=== PATIENT | female | born 1955 | race Caucasian/White ===

== ENCOUNTER → 2018-01-20 | Outpatient (CLI) | payer OTHER ==
[~2018-01-20] MED LIST: ASPI81TA23 PO; IBUP1TAB5 PO
== END ==
LOC: CPRE 08:20
PROVIDERS: ATTEND Orthopaedic Surgery Sports Medicine
DX: M16.12 Unilateral primary osteoarthritis, left hip (principal)

== ENCOUNTER 2018-02-06 05:18 | Inpatient (IN) | payer OTHER, MEDICARE ==
[~2018-02-06] VITALS: Ht 165.1 cm; Wt 71.2 kg
[2018-02-06] MEDS ORDERED: POVIDONE IODINE 5% (ANTISEPSIS KIT) 4 APPLICATIONS EACH NARE PRN (05:45)
[2018-02-06] MEDS ORDERED: LACTATED RINGER'S 1000 ML IV PRN (05:45)
[2018-02-06] MEDS ORDERED: METOPROLOL TARTRATE 25 MG TAB PO PRN (05:45)
[2018-02-06] MEDS ORDERED: CHLORHEXIDINE GLUCONATE 2 % 1 PACK (2 CLOTHS) TOPICAL PRN (05:45)
[2018-02-06] MEDS ORDERED: SODIUM CHLORID 0.9% 500 ML IV PRN (05:45)
[2018-02-06] MEDS: CHLORHEXIDINE GLUCONATE 4% SOLN 120 ML BTL TOPICAL SCH ×2 (05:55→06:54)
[2018-02-06] MEDS ORDERED: FAT EMULSION 20% INJ 0 ML ONE (05:58)
[2018-02-06] MEDS ORDERED: POVIDONE IODINE 7.5% SCRUB 118 ML BOTTLE TOPICAL SCH (06:00)
[2018-02-06] MEDS ORDERED: DEXAMETHASONE SOD PHOS PF 10 MG/ML VIAL IV PUSH ONE (06:00)
[2018-02-06] MEDS ORDERED: VANCOMYCIN 1 GM/200 ML INJ 200 ML IV SCH (06:00)
[2018-02-06] MEDS ORDERED: PRAV20TA2 PO (06:13)
[2018-02-06] MEDS ORDERED: GENTAMICIN SULFATE 80 MG/2 ML VIAL ONE (06:24)
[2018-02-06] MEDS ORDERED: ACETAMINOPHEN 1000 MG/100 ML 100 ML IV ONE (06:31)
[2018-02-06] MEDS ORDERED: DEXMEDETOMIDINE HCL 200 MCG/2 ML VIAL ONE (06:33)
[2018-02-06] MEDS ORDERED: KETAMINE HCL 50 MG/5 ML SYRINGE ONE ×2 (06:34→07:52)
[2018-02-06] MEDS ORDERED: HYDR-3288 PO (06:49)
[2018-02-06] MEDS ORDERED: ASPI81CH6 CHEW (06:49)
[2018-02-06] MEDS ORDERED: ACETAMINOPHEN/HYDROcodone 325 MG/7.5 MG TAB PO PRN (07:00)
[2018-02-06] MEDS ORDERED: Post-op Orders (for Pharmacy) XX ONE (07:00)
[2018-02-06] MEDS ORDERED: MORPHINE SULFATE 4 MG/ML INJ IV PUSH PRN (07:00)
[2018-02-06] MEDS ORDERED: EXPAREL PERI-ARTICULAR INJECTION (TOTAL VOL. 60 ML) P-ARTICULR SCH ×2 (07:00)
[2018-02-06] MEDS ORDERED: diphenhydrAMINE HCL 50 MG/ML VIAL IV PUSH PRN (07:00)
[2018-02-06] MEDS ORDERED: TRANEXAMIC ACID IV SCH (07:00)
[2018-02-06] MEDS ORDERED: SODIUM CHLORIDE 0.9% IV SCH (07:00)
[2018-02-06] MEDS ORDERED: TRANEXAMIC PERI-ARTICULAR 3,000 MG/NS 100 ML P-ARTICULR SCH ×2 (07:00)
[2018-02-06] MEDS: PRAVASTATIN SOD 20 MG TAB PO SCH (09:00)
--- NOTE | 2018-02-06 09:12 | MP ---
cc: Ruel Hassan MD DATE OF OPERATION: DATE OF PROCEDURE: 02/06/2018. PREOPERATIVE DIAGNOSIS: Left hip osteoarthritis with osteonecrosis. POSTOPERATIVE DIAGNOSIS: Left hip osteoarthritis with osteonecrosis. PROCEDURE PERFORMED: Left total hip arthroplasty. SURGEON: Ruel Hassan MD AGATE SETTER: Mario Green PA-C ANESTHESIA: General. ESTIMATED BLOOD LOSS: 500 mL COMPLICATIONS: None. IMPLANTS USED: DePuy Corail size 10 press-fit standard offset femoral stem, size 52 [place] Gription cup, size 36 mm neutral polyethylene liner, size 36 mm ceramic head, +1.5 neck. JUSTIFICATION: This patient is a 62-year-old female with history of severe left hip pain. The pain is severe, constant, progressive and does interfere with activities of daily living. She has failed greater than 3 months of nonoperative conservative treatment including medication therapy, injections, ambulatory assisted home aids, home exercise program, activity modification, weight loss attempts. X-rays of the left hip reveal severe osteoarthritis with evidence of osteonecrosis. There was [id number] joint space narrowing, subchondral sclerosis, subchondral cyst, osteophyte formation, superior subluxation with collapse of the femoral head. The patient was counseled at to the risks, benefits and alternatives to a total hip arthroplasty. The risks were discussed which include, but are not limited to anesthesia, bleeding, infection, damage to nerves and blood vessels, fracture dislocation, failure of components, leg length discrepancies, blood clots, pulmonary embolism, even . The patient's pain is severe. She favors the benefits over the risks. She did wish to proceed with surgery. PROCEDURE IN DETAIL: Written consent was obtained. The patient was identified by name, taken to the operating room and placed supine on the operating table. General anesthesia was administered as well as 2 grams of IV Ancef and 1 gram of IV vancomycin. The left and right feet were placed in the padded traction boots. All bony prominences and pressure points were well padded. The left hip and left lower extremity were prepped and draped using isopropyl alcohol, Hibiclens solution and ChloraPrep solution. After timeout was performed, a longitudinal incision was made over the anterolateral aspect of the left hip. The fascial layer was incised. Dissection was carried over tensor fascia kelly, beneath the rectus femoris to allow exposure of the anterior hip capsule. A capsulotomy incision was performed. An oscillating saw was used to perform a femoral neck cut. The femoral head and neck component was removed. It did show severe osteoarthritis with osteonecrosis. A 10 blade scalpel was used to excise the labrum. Sequential reaming began at size 42 mm, carried through to size 52 mm. Subsequently, a [place] Gription cup was implanted in approximately 45 degrees of abduction and 10 degrees of anteversion. A drill hole was made within the posterior superior quadrant of the acetabulum and a single 6.5 x 30 mm screw was placed through the cup for additional fixation of the cup. There was good purchase and fixation after insertion of the screw. Subsequently, the neutral polyethylene liner was placed within the cup. This was impacted and tested for stability. Attention was turned to the femur. The leg was externally rotated, extended and adducted. The capsule was released off the undersurface of the greater trochanter to allow for elevation and lateralization of the femur. A box cutting osteotome was used to gain entrance into the intramedullary canal of the femur. This was followed by canal finder and sequential broaching up to size 10. A calcar planer was used to plane the calcar. Trial head and neck combinations were evaluated and final components implanted. With the current components, the leg could achieve external rotation of 70 degrees and extension all the way down to the ground without evidence of anterior instability or impingement. Fluoroscopic imaging showed appropriate implantation of the components. The surgical wound was thoroughly irrigated with sterile saline pulse lavage antibiotic impregnated solution. The fascial layer was closed with #1 Vicryl suture, subcutaneous layer with 2-0 Vicryl suture. Skin was closed with Dermabond. Sterile dressing applied. The patient tolerated the procedure well. N intraoperative complications noted. Mario Green, physician metal forger's assistant certified, was present for the entire procedure, particularly patient positioning and the procedure itself. The medical necessity of a physician metal forger's assistant was indicated in this case due to the complexity of the procedure. He assisted with appropriate manipulation of the leg and also the retraction of muscle, tendon, bones and neurovascular structures. He assisted with preparation of bone and also implantation of the prosthetic replacement. MD IGNACIO Bravo/FROILAN , 08:53 AM , 09:12 AM
[2018-02-06] MEDS ORDERED: *MEPERIDINE 25 MG INJ VIAL PERIprocedural Use ONLY ONE (09:15)
[2018-02-06] MEDS ORDERED: *morphine SULFATE 4 MG/ML PERIprocedure ONLY ONE (09:15)
[2018-02-06] MEDS ORDERED: DO NOT ADM ANY ANTICOAGULANT DRUGS PRN (09:15)
[2018-02-06] MEDS ORDERED: MIDAZOLAM HCL 2 MG/2 ML VIAL ONE (09:20)
[2018-02-06] MEDS ORDERED: MORPHINE SULFATE 4 MG/ML INJ ONE (09:20)
[2018-02-06] MEDS: SODIUM CHLOR 0.9% 1000 ML INJ 1,000 ML IV SCH ×2 (10:00→18:00)
--- NOTE | 2018-02-06 10:24 | RADRPT ---
EXAM DATE/TIME: 02/06/2018 10:34 [facility] COMPARISON: No previous studies available for comparison. INDICATIONS : Post-op left hip replacement. MEDICAL HISTORY : None. SURGICAL HISTORY : Left hip replacement ENCOUNTER: Initial ACUITY: 1 day PAIN SCORE: Non-responsive. LOCATION: Left Hip FINDINGS: A left hip arthroplasty is present. The alignment is anatomic. CONCLUSION: Postsurgical changes as above. Esa Tapia MD on February 06, 2018 at 10:22 Board Certified Radiologist. This report was verified electronically.
[2018-02-06 11:00] VITALS: BP 108/66; PULSE 76; RESP 18; TEMP 97.2; O2SAT 99
[2018-02-06] MEDS ORDERED: ceFAZolin 2 GM PREMIX 50 ML IV SCH (12:00)
[2018-02-06] MEDS ORDERED: ePHEDrine/NS 25 MG/5 ML SYRINGE IV ONE (12:00)
[2018-02-06] MEDS ORDERED: SUCCINYLCHOLINE CHLORIDE 100 MG/5 ML SYRINGE IV PUSH ONE (12:00)
[2018-02-06] MEDS ORDERED: PROPOFOL 200 MG/20 ML AMP IV ONE (12:00)
[2018-02-06] MEDS ORDERED: ROCURONIUM INJ 50 MG/5 ML SYRINGE IV PUSH ONE (12:00)
[2018-02-06] MEDS ORDERED: LIDOCAINE HCL 1% PF 5 ML SYRINGE OTHER ONE (12:00)
[2018-02-06] MEDS ORDERED: PHENYLEPH/NS 1000 MCG/10 ML SYR IV ONE (12:00)
[2018-02-06] MEDS ORDERED: ONDANSETRON HCL 4 MG/2 ML VIAL IV ONE (12:00)
--- NOTE | 2018-02-06 12:32 | RADRPT ---
EXAM DATE/TIME: 02/06/2018 07:14 [facility] COMPARISON: No previous studies available for comparison. INDICATIONS : Left anterior hip replacement. MEDICAL HISTORY : Myocardial infarction. Arthritis. SURGICAL HISTORY : Oopherectomy. ENCOUNTER: Initial ACUITY: 1 day PAIN SCORE: Non-responsive. LOCATION: Left anterior hip. FINDINGS: The patient is status post a total hip arthroplasty with a bipolar prosthesis. Prosthesis is well-sea chaim. Alignment is anatomic. A fracture is not appreciated. CONCLUSION: Anatomic alignment. Lupillo Magallanes MD FACR on February 06, 2018 at 12:29 Board Certified Radiologist. This report was verified electronically.
--- NOTE | 2018-02-06 13:29 | PD.CONS ---
HPI Service [facility] Hospitalists Consult Requested By Dr. Hassan Reason for Consult Medical management Primary Care Physician Non-Staff Diagnoses: (1) Diabetes mellitus (2) Hyperlipidemia (3) Primary localized osteoarthrosis, pelvic region and thigh History of Present Illness The patient is a 62-year-old female admitted for left total hip arthroplasty. Hospitalist consultation was requested for medical management. The patient states that she is having some pain in the hip, but otherwise has no complaints at this time. She reports history of hyperlipidemia and states that she was started on statin just a few days ago. She also has a history of diabetes, but states that she has not been on medication for it in quite a while and has not checked her sugar recently. She states that her blood sugars have been very well controlled and she was taken off of metformin. Review of Systems Constitutional: DENIES: Fever, Chills, Night Sweats Eyes: DENIES: Blurred vision, Vision loss Ears, nose, mouth, throat: DENIES: Hearing loss Respiratory: DENIES: Cough, Wheezing, Sputum production, Shortness of breath Cardiovascular: DENIES: Chest pain, Palpitations, Dyspnea on Exertion, Lower Extremity Edema Gastrointestinal: DENIES: Abdominal pain, Constipation, Diarrhea, Nausea, Vomiting Genitourinary: DENIES: Urinary frequency, Urinary incontinence, Urgency, Hematuria, Dysuria, Nocturia Musculoskeletal: COMPLAINS OF: Joint pain, DENIES: Muscle aches Integumentary: DENIES: Pruritus, Rash Hematologic/lymphatic: DENIES: Bruising Neurologic: DENIES: Headache Past Family Social History Allergies: Coded Allergies: sulfamethoxazole (Verified Allergy, Severe, 01/20/18) pancreatitis trimethoprim (Verified Allergy, Severe, 01/20/18) pancreatitis Sulfa (Sulfonamide Antibiotics) (Verified Allergy, Unknown, 01/20/18) pancreatitis Past Medical History Hyperlipidemia Osteoarthritis Rheumatoid arthritis Diabetes mellitus Past Surgical History Bilateral knee replacement Bilateral shoulder surgery Exploratory laparotomy Reported Medications Pravastatin Gabapentin Family History Mother had bone cancer. Father had stroke. Social History Quit smoking in September 2017. Drinks 3 alcoholic beverages per day. Denies IV drug use. Physical Exam Vital Signs Vital Signs Date Time Temp Pulse Resp B/P (MAP) Pulse Ox O2 Delivery O2 Flow Rate FiO2 02/06/18 11:00 97.2 76 18 108/66 (80) 99 02/06/18 10:15 98.0 73 16 97/60 (72) 94 Nasal Cannula 2 02/06/18 10:00 73 16 95/62 (73) 94 Nasal Cannula 2 02/06/18 09:45 74 14 88/53 (65) 94 Nasal Cannula 3 02/06/18 09:30 80 18 88/51 (63) 93 Nasal Cannula 3 02/06/18 09:15 78 22 97/60 (72) 94 Nasal Cannula 3 02/06/18 09:12 97.9 80 20 106/54 (71) 93 Nasal Cannula 3 02/06/18 05:55 98.4 92 20 140/92 (108) 97 Physical Exam GENERAL: Well-nourished, well-developed female in no acute distress. Sitting up in a chair. HEENT: Normocephalic, atraumatic. Pupils equal, round and reactive. Extraocular movements intact. No scleral icterus. No injection or drainage. Oropharynx is clear. Mucous membranes are moist. CARDIOVASCULAR: Regular rate and rhythm without murmurs, gallops, or rubs. RESPIRATORY: Clear to auscultation. No wheezes, rales, or rhonchi. Breathing is non-labored. GASTROINTESTINAL: Abdomen soft, non-tender, nondistended. EXTREMITIES: No lower extremity edema. No calf tenderness. SCDs. PSYCH: Alert and oriented x 3. Imaging Last Impressions Hip and Pelvis X-Ray 02/06/18 0646 Signed Impressions: Service Date/Time: Tuesday, February 06, 2018 10:34 - CONCLUSION: Postsurgical changes as above. Esa Tapia MD Hip X-Ray 02/06/18 0000 Signed Impressions: Service Date/Time: Tuesday, February 06, 2018 07:14 - CONCLUSION: Anatomic alignment. MD SHANTAL Britt Matthew D. MD Feb 06, 2018 13:29
[2018-02-06] MEDS: ACETAMINOPHEN/HYDROcodone 325 MG/7.5 MG TAB PO PRN ×3 (14:21→22:52)
[2018-02-06] MEDS: ceFAZolin 2 GM in NS 100 ML IV SCH ×2 (14:51→21:18)
[2018-02-06 16:00] VITALS: BP 119/73; PULSE 83; RESP 18; TEMP 97.6; O2SAT 95
[2018-02-06 21:00] VITALS: BP 101/58; PULSE 84; RESP 17; TEMP 98.1; O2SAT 94
[2018-02-06] MEDS ORDERED: ZOLPIDEM TARTRATE 5 MG TAB PO PRN (21:00)
[2018-02-06] MEDS: ONDANSETRON HCL 4 MG/2 ML VIAL IVP PRN (23:23)
[2018-02-07] VITALS: BP 101/63; PULSE 84; RESP 17; TEMP 98.5; O2SAT 95
[2018-02-07] MEDS: ceFAZolin 2 GM in NS 100 ML IV SCH (03:15)
[2018-02-07] MEDS: SODIUM CHLOR 0.9% 1000 ML INJ 1,000 ML IV SCH (03:57)
[2018-02-07 04:00] VITALS: BP 102/62; PULSE 71; RESP 17; TEMP 98.3; O2SAT 95
[2018-02-07 05:06] LABS: HEMATOCRIT 28.9 % (35.0-46.0); HEMOGLOBIN 9.9 GM/DL (11.6-15.3); MEAN CELL VOLUME 94.2 FL (80.0-100.0); MEAN CORPUSCULAR HEMOGLOBIN 32.4 PG (27.0-34.0); MEAN CORPUSCULAR HGB CONC 34.4 % (32.0-36.0); MEAN PLATELET VOLUME 7.4 FL (7.0-11.0); PLATELET COUNT 281 TH/MM3 (150-450); RED BLOOD COUNT 3.07 MIL/MM3 (4.00-5.30); RED CELL DISTRIBUTION WIDTH 12.6 % (11.6-17.2); WHITE BLOOD COUNT 9.9 TH/MM3 (4.0-11.0)
[2018-02-07 07:37] VITALS: BP 101/57; PULSE 81; RESP 18; TEMP 98.7; O2SAT 95
[2018-02-07] MEDS ORDERED: ENOXAPARIN SODIUM 40 MG/0.4 ML SYRINGE SQ SCH (08:00)
--- NOTE | 2018-02-07 08:07 | PD.ORT.PN ---
Subjective Post Op Day #: 1 Subjective Remarks doing well. Objective Vitals Vital Signs Date Time Temp Pulse Resp B/P (MAP) Pulse Ox O2 Delivery O2 Flow Rate FiO2 02/07/18 07:37 98.7 81 18 101/57 (72) 95 02/07/18 04:00 98.3 71 17 102/62 (75) 95 02/07/18 00:00 98.5 84 17 101/63 (76) 95 02/06/18 21:00 98.1 84 17 101/58 (72) 94 02/06/18 16:00 97.6 83 18 119/73 (88) 95 02/06/18 15:48 18 02/06/18 11:00 97.2 76 18 108/66 (80) 99 02/06/18 10:15 98.0 73 16 97/60 (72) 94 Nasal Cannula 2 02/06/18 10:00 73 16 95/62 (73) 94 Nasal Cannula 2 02/06/18 09:45 74 14 88/53 (65) 94 Nasal Cannula 3 02/06/18 09:30 80 18 88/51 (63) 93 Nasal Cannula 3 02/06/18 09:15 78 22 97/60 (72) 94 Nasal Cannula 3 02/06/18 09:12 97.9 80 20 106/54 (71) 93 Nasal Cannula 3 I/O 02/06/18 02/06/18 02/06/18 02/07/18 02/07/18 02/07/18 07:00 15:00 23:00 07:00 15:00 23:00 Intake Total 2180 ml 603 ml 360 ml 100 ml Output Total 450 ml Balance 1730 ml 603 ml 360 ml 100 ml Intake Oral 480 ml 360 ml IV Total 603 ml 100 ml Other 1700 ml Output Estimated Blood Loss 450 ml # Voids 1 1 2 # Bowel Movements 0 0 Result Diagram: 02/07/18 0408 Objective Remarks in bed, nad dressing c/d/i thigh soft neg homans nvi Assessment & Plan Ortho Post Op Day #: 1 Problem List: Assessment and Plan s/p L JORI wbat ok to maintain dressing unless saturated lovenox, d/c on asa 81 PT d/c planning home with [facility] and pt - cleared if does well in PT f/up dr. arana 2 weeks Ruel Green Feb 07, 2018 08:07
--- NOTE | 2018-02-07 08:08 | HHI.DCPOC ---
Discharge Care Plan Diagnosis: (1) Primary localized osteoarthrosis, pelvic region and thigh Your Health Problems Are: Difficulty with ADL Goals to Promote Your Health * To prevent worsening of your condition and complications * To maintain your health at the optimal level Directions to Meet Your Goals Take your medications as prescribed Follow your dietary instruction Follow activity as directed Keep your appointments as scheduled Take your immunizations and boosters as scheduled If your symptoms worsen call your PCP, if no PCP go to Urgent Care Center or Emergency Room Smoking is Dangerous to Your Health. Avoid second hand smoke Call the 24-hour hour crisis hotline for domestic abuse at Ruel Green Feb 07, 2018 08:08
--- NOTE | 2018-02-07 08:09 | HHI.FF ---
Face to Face Verification Diagnosis: (1) Primary localized osteoarthrosis, pelvic region and thigh Physical Therapy Gait training, Safety evaluation, Transfer training, bed to chair Hip: Total hip, Protocol: Left Left LE Weight Bearing: WB as tolerated Nursing RN: 3 days/week x 2 weeks Nursing: Dressing changes Dressing Changes: Daily dressing change I have seen patient Diamond Montoya on 02/07/18. My clinical findings support the need for the requested home health care services because: Limited ability to care for self High risk of falls I certify that my clinical findings support that this patient is homebound because: Post-op weakness Unsteady gait/balance Ruel Green Feb 07, 2018 08:09
[2018-02-07] MEDS ORDERED: COMMODE 3-IN-11 MIS (08:10)
[2018-02-07] MEDS: ONDANSETRON HCL 4 MG/2 ML VIAL IVP PRN (08:25)
[2018-02-07] MEDS: PRAVASTATIN SOD 20 MG TAB PO SCH (09:00)
[2018-02-07 11:45] VITALS: BP 105/60; PULSE 85; RESP 18; TEMP 98.8; O2SAT 96
[2018-02-07] MEDS: ACETAMINOPHEN/HYDROcodone 325 MG/7.5 MG TAB PO PRN (12:21)
[2018-02-07] MEDS ORDERED: MULTIVITAMINS/MINERALS THERAPEUTIC TAB PO SCH (21:00)
[2018-02-07] MEDS ORDERED: DOCUSATE SODIUM 100 MG CAP PO SCH (21:00)
== END 2018-02-07 13:59 | disposition home health service (06) | DRG 470 ==
LOC: HSDI 05:18 → N06B 10:38
PROVIDERS: ADMIT Orthopaedic Surgery Sports Medicine; ATTEND Orthopaedic Surgery Sports Medicine
PROC: 0SRB04A Replacement of Left Hip Joint with Ceramic on Polyethylene Synthetic Substitute, Uncemented, Open Approach (ICD-10-PCS; principal; 2018-02-06 06:50)
DX: M16.12 Unilateral primary osteoarthritis, left hip (principal); M87.9 Osteonecrosis, unspecified; E11.9 Type 2 diabetes mellitus without complications; E78.5 Hyperlipidemia, unspecified; M06.9 Rheumatoid arthritis, unspecified; Z96.653 Presence of artificial knee joint, bilateral; Z87.891 Personal history of nicotine dependence; I25.2 Old myocardial infarction
CPT/HCPCS: 73502; 76000; 85027; 86850; 86900; 86901; 94150; C1776; C9290; J0131; J0330; J0690; J1100; J1580; J1650; J2175; J2250; J2270; J2370; J2405; J3010; J3370; J7030; J7120